=== PATIENT | female | born 1995 | race Caucasian/White ===

== ENCOUNTER → 2016-12-12 | Outpatient (CLI) | payer SELFPAY ==
--- NOTE | 2016-12-12 15:29 | NM ---
Nuclear medicine hepatobiliary scan. HISTORY: Pain. The patient seated 8 ounces of ensure and 5.4 mCi of Technetium 99m Choletec. There is normal hepatic extraction. The gallbladder is seen by 20 minutes. There is biliary to jorge l clearance by 40 minutes. Ejection fraction is 69%. IMPRESSION: 1. Normal hepatobiliary exam
== END ==
LOC: RADNMMAIN 13:08
PROVIDERS: ATTEND Surgery
DX: R10.84 Generalized abdominal pain (principal)
CPT/HCPCS: 78226; A9537